=== PATIENT | male | born 1940 | race Caucasian/White ===

== ENCOUNTER 2019-11-07 04:24 | Outpatient (CLI) | payer MEDICARE, MEDICAID | END 2019-11-07 23:59 | disposition home or self-care (01) | LOC: DIABETIC 04:24 | PROVIDERS: ATTEND Specialist | DX: E11.65 Type 2 diabetes mellitus with hyperglycemia (principal) | CPT/HCPCS: G0108 ==

== ENCOUNTER 2021-10-01 14:15 | Day surgery (SDC) | payer MEDICARE, MEDICAID ==
[2021-09-26 10:22] LABS: ALBUMIN 3.6 G/DL (3.4-5.0); ANION GAP 11 (8-16); BLOOD UREA NITROGEN 21 MG/DL (7-18); BUN/CREATININE RATIO 19.4 (5.4-32.0); CHLORIDE 109 MMOL/L (99-107); CREATININE 1.08 MG/DL (0.60-1.10); GLUCOSE 130 MG/DL (70-104); POTASSIUM 4.3 MMOL/L (3.5-5.1); SODIUM 144 MMOL/L (135-145); TOTAL CARBON DIOXIDE 23.8 MMOL/L (24-32); eGFR 66 ML/MIN
[2021-09-26 10:24] LABS: BASOPHILS % (AUTO) 0.4 % (0-1); EOSINOPHILS % (AUTO) 1.3 % (0-6); HEMATOCRIT 38.2 % (42.0-52.0); HEMOGLOBIN 12.7 g/dl (14.0-17.9); LYMPHOCYTES # (AUTO) 0.7 X10'3 (1.1-4.8); MEAN CORPUSCULAR HEMOGLOBIN 30.1 PG (27.0-31.0); MEAN CORPUSCULAR HGB CONC 33.3 g/dL (33.0-36.5); MEAN CORPUSCULAR VOLUME 90.5 FL (78-98); MEAN PLATELET VOLUME 8.4 FL (7.4-10.4); MONOCYTES # (AUTO) 0.3 X10'3 (0-0.9); NEUTROPHILS # (AUTO) 2.8 X10'3 (1.8-7.7); NEUTROPHILS % (AUTO) 72.3 % (42-75); PLATELET COUNT 123 X10'3 (140-440); RED BLOOD COUNT 4.22 X10'6 (4.70-6.10); WHITE BLOOD COUNT 3.9 X10'3 (4.5-11.0)
[2021-09-26 10:26] LABS: APTT 34 SECONDS (22-32)
[~2021-10-01] VITALS: Ht 170.2 cm; Wt 84.4 kg
[2021-10-01] VITALS (11 sets, daily range): BP systolic 99–118; BP diastolic 57–79
[2021-10-01] MEDS ORDERED: LORazepam 0.5 MG tablet PO PRN (14:50)
[2021-10-01] MEDS ORDERED: normal saline 1,000 ML IV SCH (14:50)
[2021-10-01] MEDS ORDERED: diphenhydrAMINE 25mg capsule PO PRN (14:50)
[2021-10-01] MEDS ORDERED: INSU100I29 SQ (14:56)
[2021-10-01] MEDS ORDERED: ISOS30TA84 PO (14:56)
[2021-10-01] MEDS ORDERED: FURO20TA4 PO (14:56)
[2021-10-01] MEDS ORDERED: METO-395 PO (14:56)
[2021-10-01] MEDS ORDERED: ATOR40TA72 PO (14:56)
[2021-10-01] MEDS ORDERED: RIVA20TA PO (14:56)
[2021-10-01] MEDS ORDERED: FLO0.4C PO (14:56)
[2021-10-01] MEDS ORDERED: SITA100T15 PO (14:56)
[2021-10-01] MEDS ORDERED: POTA8CAP20 PO (14:56)
[2021-10-01] MEDS ORDERED: UMEC1DIS (15:02)
[2021-10-01] MEDS ORDERED: IBUP-1986 PO (15:02)
[2021-10-01] MEDS ORDERED: FAMO20TA8 PO (15:02)
[2021-10-01] MEDS ORDERED: ASCO500C17 PO (15:02)
[2021-10-01] MEDS ORDERED: CHOL20002 PO (15:02)
[2021-10-01] MEDS ORDERED: VITAMIN B12 PO (15:02)
[2021-10-01] MEDS ORDERED: DIO80T PO (15:02)
[2021-10-01] MEDS ORDERED: METF-900 PO (15:05)
[2021-10-01] MEDS ORDERED: nitroGLYCERIN-Tridil 50MG/D5W 250 ML IV ONE (15:41)
[2021-10-01] MEDS ORDERED: midazolam 1 mg/ML 2ml injection ONE (15:41)
[2021-10-01] MEDS ORDERED: verapamil 2.5 mg/ml inj IV ONE (15:41)
[2021-10-01] MEDS ORDERED: fentaNYL/PF 50MCG/1 ML 2ML syringe ONE (15:41)
[2021-10-01] MEDS ORDERED: iohexol 350MG/ML 100ml bottle IV ONE ×2 (15:42→16:58)
[2021-10-01] MEDS ORDERED: heparin 1,000unit/ml 10ml vial 10 ML ONE (15:42)
[2021-10-01] MEDS ORDERED: LIDOcaine 1% (10mg/ml)w/preservative injection 20ml MDV ONE (15:42)
[2021-10-01] MEDS ORDERED: iohexol 350 MG/ML 50ML vial IV ONE (16:59)
== END 2021-10-01 20:30 | disposition home or self-care (01) ==
LOC: SSTAY O 14:15
PROVIDERS: ATTEND Student in an Organized Health Care Education/Training Program
DX: R94.39 Abnormal result of other cardiovascular function study (principal); R06.09 Other forms of dyspnea; I25.810 Atherosclerosis of coronary artery bypass graft(s) without angina pectoris; I10 Essential (primary) hypertension; I48.91 Unspecified atrial fibrillation; E11.9 Type 2 diabetes mellitus without complications; I08.1 Rheumatic disorders of both mitral and tricuspid valves; E78.5 Hyperlipidemia, unspecified; J43.9 Emphysema, unspecified; I65.29 Occlusion and stenosis of unspecified carotid artery; Z95.0 Presence of cardiac pacemaker; Z79.899 Other long term (current) drug therapy; Z88.5 Allergy status to narcotic agent
CPT/HCPCS: 36415; 80048; 82948; 85025; 85610; 85730; 93005; 93459; 99152; 99153; C1760; C1769; J1644; J2250; J3010; J3490; J7030; Q0163; Q9967; A4620; A6258

== ENCOUNTER 2024-11-08 11:31 | Day surgery (SDC) | payer MEDICARE, MEDICAID ==
[~2024-11-08] VITALS: Ht 170.2 cm; Wt 85.4 kg
[2024-11-08] VITALS (15 sets, daily range): BP systolic 115–159; BP diastolic 58–80; PULSE 70–80; RESP 14–16; TEMP 97.3; O2SAT 94–100
[~2024-11-08 11:31] MED LIST: ASCO500C17 PO; ATOR40TA72 PO; CHOL20002 PO; DIO80T PO; FAMO20TA8 PO; FLO0.4C PO; FURO20TA4 PO; IBUP-1986 PO; INSU100I29 SQ; ISOS30TA84 PO; METF-900 PO; METO-395 PO; POTA8CAP20 PO; RIVA20TA PO; SITA100T15 PO; UMEC1DIS; VITAMIN B12 PO
[2024-11-08] MEDS ORDERED: RANO500T6 PO (12:57)
[2024-11-08] MEDS ORDERED: METO-411 (12:57)
[2024-11-08] MEDS ORDERED: FURO40TA4 (12:57)
[2024-11-08] MEDS ORDERED: MECL-231 PO (12:59)
[2024-11-08] MEDS ORDERED: ACET-1008 PO (12:59)
[2024-11-08] MEDS ORDERED: FLO0.4C (13:01)
[2024-11-08] MEDS: fentaNYL/PF 50MCG/1 ML 2ML syringe IV ONE (13:05)
[2024-11-08] MEDS: MIDAZolam 1mg/ml 10ml vial IV ONE (13:05)
[2024-11-08] MEDS: normal saline 1000ml 1,000 ML IV SCH (13:07)
== END 2024-11-08 14:40 | disposition home or self-care (01) ==
LOC: SSTAY O 11:31
PROVIDERS: ATTEND Student in an Organized Health Care Education/Training Program
DX: I08.1 Rheumatic disorders of both mitral and tricuspid valves (principal); I48.91 Unspecified atrial fibrillation; I25.10 Atherosclerotic heart disease of native coronary artery without angina pectoris; I49.5 Sick sinus syndrome; E11.9 Type 2 diabetes mellitus without complications; D64.9 Anemia, unspecified; J44.9 Chronic obstructive pulmonary disease, unspecified; Z79.899 Other long term (current) drug therapy
CPT/HCPCS: 82948; 93312; 93325; J2250; J3010; J7030